=== PATIENT | female | born 1965 | race Caucasian/White ===

== ENCOUNTER 2019-09-04 17:22 | Emergency (ER) | payer BC ==
--- OUTSIDE RECORDS SUMMARY | 2019-09-04 17:29 | XMS REPORT | Continuity of Care Document ---
:1965 External Reference #:[id number] Author Name Keesha Booth NP (transmitted by agent of provider Vidhi Jimenez) Address [address] [place] [address] Care Team Providers Name Role Phone Elva Moncada N.P. Care Team Information Stogie Packer Unavailable Problems Active Problems Provider Date Uncomplicated moderate persistent asthma Ahmet Coughlin MD Onset: 03/2020 Allergic rhinitis Ahmet Coughlin MD Onset: 06/29/2019 Allergic rhinitis due to pollen Ahmet Coughlin MD Onset: 06/29/2019 Social History Type Date Description Comments Sex Unknown Tobacco Use Start: Unknown Never Smoked Cigarettes Smoking Status Reviewed: 06/29/19 Never Smoked Cigarettes Tobacco Use Start: Unknown No Second Hand Smoke Exposure Allergies, Adverse Reactions, Alerts Active Allergies Reaction Severity Comments Date Red Wine 06/29/2019 Sulfites 06/29/2019 Latex 06/29/2019 Medications Active Medications SIG Qnty Indications Ordering Provider Date Fluticasone spray 2 sprays 48gm J30.1 Ahmet Hewitt 06/29/2019 Propionate in each nostril MD Ced 50mcg/Act daily Suspension Zyrtec Allergy one tablet by 30tabs J30.1 Ahmet A. 06/29/2019 10mg mouth every day MD Ced Tablets as needed Proair HFA 2 puffs every 4 25.5gm J30.1 Ahmet A. 06/29/2019 108(90Base) as needed MD Ced mcg/Act Aerosol Estradiol Unknown 10mcg Tablets Levothyroxine Sodium TK 1 T PO qd Unknown 50mcg Tablets Losartan Potassium TK 1/2 T PO qd Unknown 100mg Tablets Paroxetine HCL ER Unknown 12.5mg Tablets ER 24HR Fluticasone Unknown Propionate 50mcg/Act Suspension Cetirizine HCL take one tablet Unknown 10mg by mouth every Tablets day at bedtime Immunizations Description No Information Available Vital Signs Date Vital Result Comment 08/05/2019 3:56pm BP Systolic 159 mmHg BP Diastolic 83 mmHg Height 65 inches 5'5" Weight 176.00 lb BMI (Body Mass Index) 29.3 kg/m2 Respiratory Rate 17 /min 06/29/2019 4:10pm BP Systolic 161 mmHg BP Diastolic 89 mmHg Height 65 inches 5'5" Weight 176.50 lb BMI (Body Mass Index) 29.4 kg/m2 Heart Rate 78 /min Respiratory Rate 18 /min Body Temperature 98.9 F O2 % BldC Oximetry 98 % Results Description No Information Available Procedures Date Code Description Status 06/29/2019 89876 Nitric Oxide Gas Determination Completed 06/29/2019 14507 Allergy Tests Percutaneous W/ Allergenic Extracts Completed 06/29/2019 47711 Demonstration/Eval,Of Patient Utilization Of Completed Aerosol,Nebulizer 06/29/2019 26184 Bronchodilation Responsiveness Spirometry Pre/Post Completed Bronchodil Adm Medical Devices Description No Information Available Encounters Type Date Location Provider Dx Diagnosis Office Visit 08/05/2019 Arnaldo Booth NP J45.40 Moderate persistent 4:00p asthma, uncomplicated J30.89 Other allergic rhinitis Office Visit 06/29/2019 4:00p Arnaldo Coughlin J30.1 Allergic rhinitis MD due to pollen J30.89 Other allergic rhinitis J45.40 Moderate persistent asthma, uncomplicated Assessments Date Code Description Provider 08/05/2019 J45.40 Moderate persistent asthma, uncomplicated Keesha Booth NP 08/05/2019 J30.89 Other allergic rhinitis Keesha Booth NP 06/29/2019 J30.1 Allergic rhinitis due to pollen Ahmet Coughlin MD 06/29/2019 J30.89 Other allergic rhinitis Ahmet Coughlin MD 06/29/2019 J45.40 Moderate persistent asthma, uncomplicated Ahmet Coughlin MD Plan of Treatment Future Appointment(s):08/12/2019 2:10 pm - Injection 1 at [facility]03/24/2020 2 :00 pm - JESUS Sheth at [facility]/19/2020 - Keesha Booth, NPJ45.40 Moderate persistent asthma, uncomplicatedComments:Discussion of previous skin testing to environmental allergens was performed. We did review all thepositive test results.Patient has had immunotherapy before, she does clean her house frequently, shepays particular attention to the bedroom. Washes the sheets weekly. Has not been watching the drapes. She will begin to do so. She does not play mattress and pillow dust mite covers. And minimize his exposure to pollen when possible be a air-conditioning and/or air purifier' s.Her medications werereviewed no changes were indicated at this time her symptoms are well controlled currently.I did review the PFT and NiOx study on file. Both of which were normal.Eosinophil count was 100.Patient reports no use of her rescue inhaler. She denies any exercise induced symptom, night time cough, frequent URI's. No change in medical plan. Patient will schedule her weekly injection for immunotherapy.Follow-up in 6 months.PFT and NiOx study prior to the next visit.Greater than 50% of the 25-minute visit was spent in discussion of the testing results and treatment options.J30.89 Other allergic rhinitis Functional Status Description No Information Available Mental Status Description No Information Available Referrals Description No Information Available
--- OUTSIDE RECORDS SUMMARY | 2019-09-04 17:29 | XMS REPORT | Continuity of Care Document ---
:1965 External Reference #:[id number] Author Name Ahmet Coughlin MD (transmitted by agent of provider Vidhi Jimenez) Address [address] [place] [address] Care Team Providers Name Role Phone Elva Moncada N.P. 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 06/29/2019 108(90Base) as needed MD Ced mcg/Act [...] Information Available Procedures Date Code Description Status 08/10/2019 74431 Allergy Antigens Single Or Multiple Completed 06/29/2019 67895 Nitric Oxide Gas Determination Completed 06/29/2019 77328 Allergy Tests Percutaneous W/ Allergenic Extracts Completed 06/29/2019 32110 Demonstration/Eval,Of Patient Utilization Of Completed Aerosol,Nebulizer 06/29/2019 82632 Bronchodilation Responsiveness Spirometry Pre/Post Completed Bronchodil Adm Medical Devices Description No Information Available Encounters Type Date Location Provider Dx Diagnosis Office Visit 08/05/2019 Arnaldo Booth NP J45.40 Moderate persistent 4:00p asthma, uncomplicated J30.89 Other allergic rhinitis Office Visit 06/29/2019 4:00p Arnaldo Coughlin J30.1 Allergic rhinitis due to pollen J30.89 Other allergic rhinitis J45.40 Moderate persistent asthma, uncomplicated Assessments Date Code Description Provider 08/10/2019 J30.1 Allergic rhinitis due to pollen Ahmet Coughlin MD 08/10/2019 J30.89 Other allergic rhinitis Ahmet Coughlin MD 08/05/2019 J45.40 Moderate persistent asthma, uncomplicated Keesha Booth NP 08/05/2019 J30.89 Other allergic rhinitis Keesha Booth NP 06/29/2019 J30.1 Allergic rhinitis due to pollen Ahmet Coughlin MD 06/29/2019 J30.89 Other allergic rhinitis Ahmet Coughlin MD 06/29/2019 J45.40 Moderate persistent asthma, uncomplicated Ahmet Coughlin MD Plan of Treatment Future Appointment(s):08/12/2019 2:10 pm - Injection 1 at [facility]94/24/2020 2 :00 pm - Halley Shaver RPA-Noam at [facility]/19/2020 - Keesha Booht, NPJ45.40 Moderate persistent asthma, uncomplicatedComments:Discussion of previous [...]
--- OUTSIDE RECORDS SUMMARY | 2019-09-04 17:29 | XMS REPORT | Continuity of Care Document ---
:1965 External Reference #:[id number] Author Name Keesha Booth NP (transmitted by agent of provider Lexie Amador) Address [address] [place] [address] Care Team Providers Name Role Phone Elva Moncada N.P. Care Team Information Payment Analyst Unavailable Problems Active Problems Provider Date Uncomplicated [...] Fluticasone spray 2 sprays 48gm J30.1 Ahmet ALucas 06/29/2019 Propionate in each nostril MD Ced 50mcg/Act daily Suspension Zyrtec Allergy one tablet by 30tabs J30.1 Ahmet A. 06/29/2019 10mg mouth every day MD Ced Tablets as needed Proair HFA 2 puffs every 4 25.5gm J30.1 Jorgeophalida A. 06/29/2019 108(90Base) as needed MD Ced [...] Available Procedures Date Code Description Status 06/29/2019 41541 Nitric Oxide Gas Determination Completed 06/29/2019 72134 Allergy Tests Percutaneous W/ Allergenic Extracts Completed 06/29/2019 54929 Demonstration/Eval,Of Patient Utilization Of Completed Aerosol,Nebulizer 06/29/2019 41149 Bronchodilation Responsiveness Spirometry Pre/Post Completed Bronchodil Adm Medical Devices Description No Information Available Encounters Type Date Location Provider Dx Diagnosis Office Visit 06/29/2019 Chesterzuleyma Coughlin, J30.1 Allergic rhinitis 4:00p due to pollen J30.89 Other allergic rhinitis J45.40 Moderate persistent asthma, uncomplicated Assessments Date Code Description Provider 06/29/2019 J30.1 Allergic rhinitis due to pollen Ahmet Coughlin MD 06/29/2019 J30.89 Other allergic rhinitis Ahmet Coughlin MD 06/29/2019 J45.40 Moderate persistent asthma, uncomplicated Ahmet Coughlin MD Plan of Treatment No Information Available Functional Status Description No Information Available Mental Status Description No Information Available Referrals Description No Information Available
[2019-09-04 17:35] VITALS: BP 194/92
--- NOTE | 2019-09-04 17:47 | UC ---
Skin Complaint HPI - HPI Summary HPI Summary: 53 yo with increasing erythema around the medial border and proximal nail fold for the past 2 days, aware that she clipped her toenails too closely about 10 days ago. Pain is mild. Shortly before arriving here she expressed yellow pus from the area, which is now no longer draining. No fever or chills. Aside from anxiety, she feels well. - History of Current Complaint Chief Complaint: UCSkin Time Seen by Provider: 09/04/19 17:30 Stated Complaint: SKIN COMPLAINT Hx Obtained From: Patient Onset/Duration: Gradual Onset, Lasting Days Skin Exposure Onset/Duration: Days Ago Timing: Constant Onset Severity: Mild Current Severity: Mild Pain Intensity: 5 Aggravating Factor(s): Touch Alleviating Factor(s): Other - soaked her toe last night and felt more discomfort. Associated Signs & Symptoms: Positive: Drainage Related History: Trauma - over zealous nail trimming. - Allergy/Home Medications Allergies/Adverse Reactions: Allergies Allergy/AdvReac Type Severity Reaction Status Date / Time No Known Allergies Allergy Verified 09/04/19 17:35 Home Medications: Home Medications Cephalexin CAP* [Keflex 500 CAP*] 500 mg PO TID #21 cap 09/04/19 [Rx] Levothyroxine TAB* [Synthroid TAB*] 50 mcg PO DAILY 09/04/19 [History Confirmed 09/04/19] Losartan TAB* [Cozaar TAB*] 12.5 mg PO DAILY 09/04/19 [History Confirmed ] PARoxetine HCl [Paroxetine ER] 12.5 mg PO DAILY 09/04/19 [History Confirmed ] PMH/Surg Hx/FS Hx/Imm Hx Endocrine History: Hypothyroidism Cardiovascular History: Hypertension Neurological History: Migraine Psychological History: Anxiety - Surgical History Surgical History: None - Family History Known Family History: Positive: Hypertension Negative: Cardiac Disease, Diabetes - Social History Occupation: Employed Full-time - teacher. Lives: With Family Alcohol Use: Rare Substance Use Type: None Smoking Status (MU): Never Smoked Tobacco Review of Systems All Other Systems Reviewed And Are Negative: Yes Constitutional: Positive: Negative Skin: Positive: Other - toe erythema and drainage Eyes: Positive: Negative ENT: Positive: Negative Respiratory: Positive: Negative Cardiovascular: Positive: Other - decreased losartan several months ago when BP' s improved with exercise and weight loss. Long hx of elevated BP's in MD offices , and she does self monitor readings at home. Gastrointestinal: Positive: Negative Genitourinary: Positive: Negative Motor: Positive: Negative Neurovascular: Positive: Negative Musculoskeletal: Positive: Negative Neurological/Mental Status: Negative: Headache - hx of headaches when BP elevates, currently does not have a headache. Psychological: Positive: Anxious - finding teaching remotely very challenging and demanding of time. Is Patient Immunocompromised?: No Physical Exam Triage Information Reviewed: Yes Appearance: Well-Appearing, No Pain Distress Vital Signs: Initial Vital Signs Temp 98.1 F 09/04/19 17:31 Pulse 81 09/04/19 17:31 Resp 16 09/04/19 17:31 BP 194/92 09/04/19 17:31 Pulse Ox 100 09/04/19 17:31 Eye Exam: Normal ENT: Positive: Normal ENT inspection Respiratory: Positive: Lungs clear, Normal breath sounds Cardiovascular: Positive: RRR, No Murmur Musculoskeletal Exam: Normal Neurological Exam: Normal Neurological: Positive: Alert Psychological Exam: Other - very stressed and anxious Skin Exam: Other - left great toe with medial rim of erthema along the margin of the nail, no abscess forming. No lymphangitic spread and tenderness is minimal. Could not express drainage. Re-Evaluation - Re-Evaluation First Eval Re-Evaluation Time: 17:50 Change: Improved Comment: Manual blood pressure reading of 176/88 Course/Dx - Course Course Of Treatment: continue soaking, advised to soak and observe. Anticipate that now that she has expressed purulent drainage, might spontaneously improve with soaking alone and avoiding antibiotics. - Differential Diagnoses - Skin Complaint Differential Diagnoses: Cellulitis, Other - paronychia - Diagnoses Provider Diagnosis: Paronychia of toenail of left foot Discharge ED - Sign-Out/Discharge Documenting (check all that apply): Patient Departure All imaging exams completed and their final reports reviewed: No Studies - Discharge Plan Condition: Stable Disposition: HOME Prescriptions: Cephalexin CAP* [Keflex 500 CAP*] 500 mg PO TID #21 cap Patient Education Materials: Paronychia (ED) Referrals: Elva Moncada NP [Primary Care Provider] - Additional Instructions: Continue soaking your foot in hot water and epsom salts for 15 minutes three times per day. You can continue use of topical antibiotic to the border of the toenail The infection might resolve on its own. As discussed, if redness increases and advances, or if you have persistent drainage, you can start the use of cephalexin. - Billing Disposition and Condition Condition: STABLE Disposition: Home
== END 2019-09-04 18:14 | disposition home or self-care (01) ==
LOC: UCCORT 17:22
DX: L03.032 Cellulitis of left toe (principal); E03.9 Hypothyroidism, unspecified; I10 Essential (primary) hypertension; F41.9 Anxiety disorder, unspecified; Z79.890 Hormone replacement therapy; Z79.899 Other long term (current) drug therapy
CPT/HCPCS: 99202; G0463